=== PATIENT | female | born 1955 | race Caucasian/White ===

== ENCOUNTER 2018-02-19 19:53 | Emergency (ER) | payer MEDICAID, OTHER ==
[~2018-02-19] VITALS: Ht 165.1 cm; Wt 81.6 kg
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
[2018-02-19] MEDS ORDERED: TRAMADOL HCL 50 MG TABLET ONE (21:53)
[2018-02-19] MEDS ORDERED: TRAMADOL HCL 50 MG TABLET PO ONE (22:00)
[2018-02-19] MEDS ORDERED: MORPHINE SULFATE INJ 4 MG/ML DISP.SYRIN ONE (22:43)
[2018-02-19] MEDS ORDERED: MORPHINE SULFATE INJ 2 MG/ML DISP.SYRIN IV ONE (23:00)
--- NOTE | 2018-02-19 23:45 | NUR ---
Patient discharged to home in stable condition. Written and verbal after care instructions given. Patient verbalizes understanding of instruction. ambulatory with a steady gait noted. pt aaox4 no acute distress noted, resp even and unlabored. advice pt not to drive or operate any machienry due ot pt was given morphine. pt verbalize understanding. pt friend at bedside to take pt home.
[2018-02-19 23:46] VITALS: BP 143/64
== END 2018-02-20 00:05 | disposition home or self-care (01) ==
LOC: ER 19:56
DX: M25.511 Pain in right shoulder (principal); M19.90 Unspecified osteoarthritis, unspecified site; Z89.411 Acquired absence of right great toe; Z98.890 Other specified postprocedural states; Z60.2 Problems related to living alone; W22.8XXA Striking against or struck by other objects, initial encounter; Y93.01 Activity, walking, marching and hiking; Y92.89 Other specified places as the place of occurrence of the external cause; Y99.8 Other external cause status
CPT/HCPCS: 73030-TC; A4606; J2270; Z7610